=== PATIENT | female | born 1985 | race Caucasian/White ===

== ENCOUNTER 2019-01-17 14:48 | Emergency (ER) | payer BC, OTHER ==
[~2019-01-17] VITALS: Ht 167.6 cm; Wt 65.0 kg
[~2019-01-17 14:48] MED LIST: IBUP-1222 PO; OXYC-302 PO
[2019-01-17 15:46] LABS: BASOPHILS # (AUTO) 0.01 x10^3/uL (0-0.1); BASOPHILS % (AUTO) 0 % (0-1); EOSINOPHILS % (AUTO) 0 % (1-7); LYMPHOCYTES # (AUTO) 0.85 x10^3/uL (1-3.4); LYMPHOCYTES % (AUTO) 9 % (22-44); MD NO; MEAN CORPUSCULAR HEMOGLOBIN 30.2 pg (27.0-34.8); MEAN CORPUSCULAR HGB CONC 34.1 g/dL (32.4-35.8); MEAN CORPUSCULAR VOLUME 88.6 fL (80-100); MEAN PLATELET VOLUME 8.6 fL (7.4-10.4); MONOCYTES # (AUTO) 0.22 x10^3/uL (0.2-0.8); MONOCYTES % (AUTO) 2 % (2-9); NEUTROPHILS # (AUTO) 8.13 x10^3/uL (1.8-6.8); NEUTROPHILS % (AUTO) 88 % (42-75); PLATELET COUNT 183 x10^3/uL (130-400); RED BLOOD COUNT 5.15 x10^6/uL (3.82-5.3); RED CELL DISTRIBUTION WIDTH 12.9 % (9.6-15.2)
[2019-01-17 16:06] LABS: ANION GAP 6 mmol/L (5-15); CALCIUM 9.2 mg/dL (8.5-10.1); CHLORIDE 107 mmol/L (98-107); CREATININE 0.83 mg/dL (0.55-1.02)
--- NOTE | 2019-01-17 16:51 | NUR ---
JAILER CHIEF: PT TO ED ROOM 35 FROM LOBBY IN NAD
[2019-01-17] MEDS ORDERED: PROMETHAZINE 25 MG/ML, 1ML IM ONE (17:30)
--- NOTE | 2019-01-17 18:00 | NUR ---
pt presents to ED with c/o n/v x 4 days, states she is 8 weeks . pt denies vaginal bleeding/discharge/cramping. pt is a&o, resps even and unlabored. pt tolerated 8 oz gatorade with no n/v.
[2019-01-17] MEDS ORDERED: PROMETHAZINE 25 MG/ML, 1ML ONE (18:02)
[2019-01-17 18:49] VITALS: BP 91/57
--- NOTE | 2019-01-17 19:01 | NUR ---
report given to MICHELLE Cardoso at bedside. pt has tolerated an additional 8 oz gatorade with no n/v. pt a&o, resps even and unlabored. awaiting dc orders from .
--- NOTE | 2019-01-17 19:02 | NUR ---
REPORT RECEIVED FROM LUANN MARTINEZ.
--- NOTE | 2019-01-17 19:11 | NUR ---
pt given dc instructions. pt amb to dc with steady gait. no acute distress at dc.
== END 2019-01-17 19:12 | disposition home or self-care (01) ==
LOC: ED 19:05
DX: O21.9 Vomiting of pregnancy, unspecified (principal); O99.281 Endocrine, nutritional and metabolic diseases complicating pregnancy, first trimester; E03.9 Hypothyroidism, unspecified; Z3A.08 8 weeks gestation of pregnancy
CPT/HCPCS: 36415; 80048; 85025; 96372; 99283; J2550

== ENCOUNTER 2019-08-20 05:11 | Inpatient (IN) | payer OTHER ==
[~2019-08-20] VITALS: Ht 167.6 cm; Wt 82.0 kg
[2019-08-20] MEDS ORDERED: OXYTOCIN 30U/ 0.9% NaCL 500ML 500 ML IV PRN (05:12)
[2019-08-20] MEDS ORDERED: AMPICILLIN 2 GM in SODIUM CHLORIDE 0.9% 100 ML IVPB STA (05:12)
[2019-08-20] MEDS ORDERED: OXYTOCIN 30U/ 0.9% NaCL 500ML 500 ML IV ONE (05:12)
[2019-08-20] MEDS ORDERED: ONDANSETRON 2MG/ML, 2ML IVPush PRN (05:30)
[2019-08-20] MEDS ORDERED: FENTANYL PF 100 MCG/2ML IV PRN (05:30)
[2019-08-20] MEDS ORDERED: TERBUTALINE 1 MG/ML, 1ML SQ PRN (05:30)
[2019-08-20] MEDS ORDERED: TERBUTALINE 1 MG/ML, 1ML IVPush PRN (05:30)
[2019-08-20] MEDS ORDERED: PLEASE ENTER HEIGHT AND WEIGHT MC SCH (05:30)
[2019-08-20] MEDS ORDERED: OXYTOCIN 30U/ 0.9% NaCL 500ML 500 ML ONE (05:33)
[2019-08-20] MEDS: LACTATED RINGERS 1,000 ML IV SCH ×3 (05:38→21:20)
[2019-08-20 05:50] LABS: BASOPHILS # (AUTO) 0.04 x10^3/uL (0-0.1); BASOPHILS % (AUTO) 0 % (0-1); EOSINOPHILS # (AUTO) 0.12 x10^3/uL (0-0.4); EOSINOPHILS % (AUTO) 1 % (1-7); LYMPHOCYTES # (AUTO) 2.73 x10^3/uL (1-3.4); LYMPHOCYTES % (AUTO) 24 % (22-44); MD NO; MEAN CORPUSCULAR HEMOGLOBIN 30.6 pg (27.0-34.8); MEAN CORPUSCULAR HGB CONC 33.1 g/dL (32.4-35.8); MEAN CORPUSCULAR VOLUME 92.6 fL (80-100); MONOCYTES # (AUTO) 0.61 x10^3/uL (0.2-0.8); MONOCYTES % (AUTO) 6 % (2-9); NEUTROPHILS # (AUTO) 7.69 x10^3/uL (1.8-6.8); NEUTROPHILS % (AUTO) 69 % (42-75); PLATELET COUNT 126 x10^3/uL (130-400); RED BLOOD COUNT 4.22 x10^6/uL (3.82-5.3); RED CELL DISTRIBUTION WIDTH 13.5 % (9.6-15.2)
[2019-08-20 05:52] VITALS: BP 133/84
[2019-08-20] MEDS ORDERED: FENTANYL PF 100 MCG/2ML ONE ×2 (07:58→09:13)
[2019-08-20] MEDS: FENTANYL PF 100 MCG/2ML IVPush PRN ×2 (08:00→09:15)
[2019-08-20] MEDS: OXYTOCIN 30U/ 0.9% NaCL 500ML 500 ML IV SCH ×2 (08:53→18:53)
[2019-08-20] MEDS ORDERED: METHYLERGONOVINE 0.2 MG/ML IM PRN (09:00)
[2019-08-20] MEDS ORDERED: AMPICILLIN 1 GM in SODIUM CHLORIDE 0.9% 50 ML IVPB SCH (09:00)
[2019-08-20] MEDS ORDERED: DOCUSATE 100 MG CAPSULE PO PRN (09:00)
[2019-08-20] MEDS ORDERED: ONDANSETRON 2MG/ML, 2ML IV PRN (09:00)
[2019-08-20] MEDS ORDERED: OXYcodone/APAP 5/325MG TABLET PO PRN (09:00)
[2019-08-20] MEDS ORDERED: ACETAMINOPHEN 325 MG TABLET PO PRN ×2 (09:00)
[2019-08-20] MEDS ORDERED: SIMETHICONE 80 MG CHEW TAB PO PRN (09:00)
[2019-08-20] MEDS: PRENATAL VIT/IRON/FA 1 EACH TABLET PO SCH (09:00)
[2019-08-20] MEDS ORDERED: MISOPROSTOL 200 MCG TABLET PR PRN (09:00)
[2019-08-20] MEDS ORDERED: IBUPROFEN 600 MG TABLET ONE (09:50)
[2019-08-20] MEDS: IBUPROFEN 600 MG TABLET PO PRN ×3 (09:55→21:38)
[2019-08-20 12:55] VITALS: BP 114/75
[2019-08-20] MEDS: OXYcodone/APAP 5/325MG TABLET PO PRN ×2 (15:52→22:57)
[2019-08-20 16:24] VITALS: BP 93/60
[2019-08-20 17:59] LABS: BASOPHILS # (AUTO) 0.04 x10^3/uL (0-0.1); BASOPHILS % (AUTO) 0 % (0-1); EOSINOPHILS # (AUTO) 0.21 x10^3/uL (0-0.4); EOSINOPHILS % (AUTO) 2 % (1-7); LYMPHOCYTES % (AUTO) 15 % (22-44); MD NO; MEAN CORPUSCULAR HEMOGLOBIN 30.7 pg (27.0-34.8); MEAN CORPUSCULAR HGB CONC 33.2 g/dL (32.4-35.8); MEAN CORPUSCULAR VOLUME 92.5 fL (80-100); MEAN PLATELET VOLUME 9.3 fL (7.4-10.4); MONOCYTES # (AUTO) 0.67 x10^3/uL (0.2-0.8); MONOCYTES % (AUTO) 5 % (2-9); NEUTROPHILS # (AUTO) 10.85 x10^3/uL (1.8-6.8); NEUTROPHILS % (AUTO) 78 % (42-75); PLATELET COUNT 127 x10^3/uL (130-400); RED BLOOD COUNT 3.69 x10^6/uL (3.82-5.3); RED CELL DISTRIBUTION WIDTH 13.3 % (9.6-15.2)
[2019-08-20 20:45] VITALS: BP 113/74
[2019-08-20] MEDS ORDERED: RHOGAM FROM BLOOD BANK 1 NOTE EA IM/IV ONE (21:00)
[2019-08-21 01:30] VITALS: BP 112/74
[2019-08-21] MEDS: IBUPROFEN 600 MG TABLET PO PRN ×3 (04:07→17:47)
[2019-08-21] MEDS: OXYcodone/APAP 5/325MG TABLET PO PRN ×4 (04:08→17:48)
[2019-08-21 04:10] VITALS: BP 108/70
[2019-08-21] MEDS: OXYTOCIN 30U/ 0.9% NaCL 500ML 500 ML IV SCH ×2 (04:53→14:53)
[2019-08-21] MEDS: LACTATED RINGERS 1,000 ML IV SCH ×2 (05:20→13:20)
[2019-08-21 07:45] VITALS: BP 130/90
[2019-08-21] MEDS: PRENATAL VIT/IRON/FA 1 EACH TABLET PO SCH (07:56)
[2019-08-21] MEDS ORDERED: IBUP-1222 PO (13:37)
[2019-08-21] MEDS ORDERED: OXYC-302 PO (13:37)
== END 2019-08-21 18:00 | disposition home or self-care (01) | DRG 807 ==
LOC: LDIP 05:11 → 2NW 11:33
PROVIDERS: ADMIT Obstetrics & Gynecology; ATTEND Obstetrics & Gynecology
PROC: 10E0XZZ Delivery of Products of Conception, External Approach (ICD-10-PCS; principal; 2019-08-20)
PROC: 10907ZC Drainage of Amniotic Fluid, Therapeutic from Products of Conception, Via Natural or Artificial Opening (ICD-10-PCS; 2019-08-20)
PROC: 3E0234Z Introduction of Serum, Toxoid and Vaccine into Muscle, Percutaneous Approach (ICD-10-PCS; 2019-08-20)
DX: O99.824 Streptococcus B carrier state complicating childbirth (principal); Z37.0 Single live birth; O99.284 Endocrine, nutritional and metabolic diseases complicating childbirth; Z3A.39 39 weeks gestation of pregnancy; E03.9 Hypothyroidism, unspecified
CPT/HCPCS: 36415; 85025; 85461; 86850; 86900; G0378; J0290; J2790; J3010; J2590; J7120